=== PATIENT | female | born 1965 | race Hispanic/Latino ===

== ENCOUNTER 2016-10-28 16:36 | Emergency (ER) | payer MEDICARE ==
[2016-10-28 17:36] VITALS: BP 165/94; PULSE 97; RESP 19; TEMP 98.9; O2SAT 100; BMI 24.0
== END 2016-10-28 18:12 | disposition left against medical advice (07) ==
LOC: ED 16:36
DX: Z02.89 Encounter for other administrative examinations (principal); R42 Dizziness and giddiness

== ENCOUNTER 2017-04-16 05:54 | Emergency (ER) | payer MEDICARE ==
[2017-04-16 05:54] VITALS: BMI 24.0
[2017-04-16] MEDS ORDERED: Sodium Chloride 0.9% 1,000 ML IV STA (06:20)
--- NOTE | 2017-04-16 06:20 | ED PDOC ---
Arrival/HPI - General Chief Complaint: Cough, Cold, Congestion Time Seen by Provider: 04/16/17 06:13 Historian: Patient - History of Present Illness Narrative History of Present Illness (Text): 04/16/17 06:17 Christa Villalpando is a 52 year old female, whose past medical history includes hypothyroidism, GERD, and anxiety, who presents to the Emergency department complaining of nausea and upper abdominal discomfort since yesterday. Patient also reports associated generalized malaise, occasional cough, and some vague left ear ache discomfort at times. Patient notes a fever at home yesterday, for which she took Tylenol with relief. Patient denies any chest pain, shortness of breath, vomiting, diarrhea, urinary symptoms, neck pain, headache, dizziness, or any other complaints. Time/Duration: Other (Yesterday) Symptom Onset: Gradual Symptom Course: Unchanged Activities at Onset: Light Context: Home Past Medical History - Provider Review Nursing Documentation Reviewed: Yes - Infectious Disease Hx of Infectious Diseases: None - Tetanus Immunization Tetanus Immunization: Unknown - Cardiac Hx Cardiac Disorders: No Hx Hypertension: No - Pulmonary Hx Tuberculosis: No - Neurological HX Cerebrovascular Accident: No Hx Seizures: No - HEENT Hx HEENT Disorder: No - Renal Hx Renal Disorder: No - Endocrine/Metabolic Hx Endocrine Disorders: Yes Hx Hypothyroidism: Yes - Hematological/Oncological Hx Cancer: No - Integumentary Hx Dermatological Disorder: No - Musculoskeletal/Rheumatological Hx Musculoskeletal Disorders: No - Gastrointestinal Hx Gastrointestinal Disorders: Yes Hx Gastroesophageal Reflux: Yes - Genitourinary/Gynecological Hx Sexually Transmitted Diseases: No - Psychiatric Hx Psychophysiologic Disorder: Yes Hx Anxiety: Yes Hx Depression: Yes Hx Emotional Abuse: No Hx Physical Abuse: No Hx Substance Use: No - Anesthesia Hx Anesthesia Reactions: Yes Hx Malignant Hyperthermia: No - Suicidal Assessment Feels Threatened In Home Enviroment: No Family/Social History - Physician Review Nursing Documentation Reviewed: Yes Family/Social History: Unknown Family HX Smoking Status: Never Smoked Hx Alcohol Use: No Hx Substance Use: No Hx Substance Use Treatment: No Allergies/Home Meds Allergies/Adverse Reactions: Allergies No Known Allergies Allergy (Verified 10/28/16 17:37) Home Medications: Home Meds Medication Instructions Recorded Confirmed Levothyroxine [Synthroid] 100 mcg PO DAILY 12/13/15 04/16/17 Lurasidone HCl [Latuda] 20 mg PO DAILY 10/28/16 04/16/17 Primidone [Mysoline] 50 mg PO HS 04/16/17 04/16/17 Review of Systems - Physician Review All systems were reviewed & negative as marked: Yes - Review of Systems Constitutional: Fevers Eyes: Normal ENT: Normal Respiratory: Cough Cardiovascular: Normal. absent: Chest Pain Gastrointestinal: Abdominal Pain, Nausea. absent: Diarrhea, Vomiting Genitourinary Female: Normal. absent: Dysuria, Frequency, Hematuria, Urine Output Changes Musculoskeletal: Normal. absent: Back Pain, Neck Pain Skin: Normal. absent: Rash Neurological: Normal. absent: Headache, Dizziness Endocrine: Normal Hemo/Lymphatic: Normal Psychiatric: Normal Physical Exam Vital Signs Reviewed: Yes Vital Signs Temp Pulse Resp BP Pulse Ox 04/16/17 06:06 97.9 F 72 16 130/85 100 Temperature: Afebrile Blood Pressure: Normal Pulse: Regular Respiratory Rate: Normal Appearance: Positive for: Well-Appearing, Non-Toxic, Comfortable Pain Distress: None Mental Status: Positive for: Alert and Oriented X 3 - Systems Exam Head: Present: Atraumatic, Normocephalic Pupils: Present: PERRL Extroacular Muscles: Present: EOMI Conjunctiva: Present: Normal Ears: Present: Normal, NORMAL TM, Normal Canal. No: Erythema Mouth: Present: Moist Mucous Membranes Pharnyx: Present: Normal. No: ERYTHEMA, EXUDATE, TONSILS ENLARGED, Peritonsilar Swelling, Uvular Deviation, Muffled/Hoarse Voice, Strider Nose (External): Present: Atraumatic Nose (Internal): Present: Normal Inspection Neck: Present: Normal Range of Motion. No: Meningeal Signs, MIDLINE TENDERNESS , Paraspinal Tenderness Respiratory/Chest: Present: Clear to Auscultation, Good Air Exchange. No: Respiratory Distress, Accessory Muscle Use Cardiovascular: Present: Regular Rate and Rhythm, Normal S1, S2. No: Murmurs Abdomen: Present: Tenderness (Epigastric tenderness), Normal Bowel Sounds. No: Distention, Peritoneal Signs Back: Present: Normal Inspection. No: CVA Tenderness, Midline Tenderness, Paraspinal Tenderness Upper Extremity: Present: Normal Inspection. No: Cyanosis, Edema Lower Extremity: Present: Normal Inspection. No: Edema Neurological: Present: GCS=15, CN II-XII Intact, Speech Normal Skin: Present: Warm, Dry, Rashes (Eczematous rash to face), Normal Color Psychiatric: Present: Alert, Oriented x 3, Normal Insight, Normal Concentration Medical Decision Making ED Course and Treatment: 04/16/17 06:17 Impression: 52 year old female complaining of nausea, upper abdominal pain, occasional cough , left ear ache discomfort, and fever. Plan: -- US Gallbladder and Pancreas -- Labs, lipase -- Rapid influenza -- IV fluids -- Zofran -- Pepcid -- Reassess and disposition Progress Notes: 04/16/17 07:[address] Marley, pending labs, US, re-assessment, and final disposition. - RAD Interpretation Radiology Orders: 04/16/17 06:20 GALLBLADDER & PANCREAS [US] Stat - Medication Orders Current Medication Orders: Sodium Chloride (Sodium Chloride 0.9%) 1,000 mls @ 999 mls/hr IV .Q1H1M STA Stop: 04/16/17 07:20 Last Admin: 04/16/17 06:48 Dose: 999 mls/hr eMAR Start Stop Document 04/16/17 06:48 SS (Rec: 04/16/17 06:48 SS [id number]) Intravenous Solution Start Date 04/16/17 Start Time 06:48 End Date 04/16/17 End time 07:48 Total Infusion Time 60 Discontinued Medications Famotidine (Pepcid) 20 mg IVP STAT STA Stop: 04/16/17 06:21 Last Admin: 04/16/17 06:48 Dose: 20 mg IVP Administration Document 04/16/17 06:48 SS (Rec: 04/16/17 06:48 SS [id number]) Charges for Administration # of IVP Administrations 1 Ondansetron HCl (Zofran Inj) 4 mg IVP ONCE ONE Stop: 04/16/17 06:21 Last Admin: 04/16/17 06:48 Dose: 4 mg IVP Administration Document 04/16/17 06:48 SS (Rec: 04/16/17 06:48 SS [id number]) Charges for Administration # of IVP Administrations 1 - Scribe Statement The provider has reviewed the documentation as recorded by the Scribe Provider Attestation: Paige Jorge All medical record entries made by the Scribe were at my direction and personally dictated by me. I have reviewed the chart and agree that the record accurately reflects my personal performance of the history, physical exam, medical decision making, and the department course for this patient. I have also personally directed, reviewed, and agree with the discharge instructions and disposition. Disposition/Present on Arrival - Present on Arrival Any Indicators Present on Arrival: No History of DVT/PE: No History of Uncontrolled Diabetes: No Urinary Catheter: No History of Decub. Ulcer: No History Surgical Site Infection Following: None - Disposition Have Diagnosis and Disposition been Completed?: No Diagnosis: Abdominal pain, Nausea Disposition Time: 07:00 Condition: STABLE Forms: [employer] (Montenegrin)
[2017-04-16 06:56] LABS: HEMOGLOBIN 12.7 g/dL (12.0-16.0); MEAN CORPUSCULAR HEMOGLOBIN 28.6 pg (25.0-35.0); MEAN CORPUSCULAR HGB CONC 32.2 g/dl (31.0-37.0); MEAN PLATELET VOLUME 9.8 fl (7.0-11.0); RBC 4.44 10^6/uL (3.5-6.1); RED CELL DISTRIBUTION WIDTH 13.4 % (11.5-14.5); WHITE BLOOD COUNT 6.6 10^3/ul (4.5-11.0)
[2017-04-16 07:07] LABS: ALB/GLOB RATIO 1.1 (1.1-1.8); ALBUMIN 4.1 g/dL (3.0-4.8); ALT/SGPT 22 U/L (7-56); AST/SGOT 25 U/L (14-36); BLOOD UREA NITROGEN 10 mg/dL (7-21); CALCIUM 9.7 mg/dL (8.4-10.5); GFR AFRICAN-AMERICAN > 60; GFR NON-AFRICAN AMERICAN > 60; LIPASE 64 U/L (23-300)
--- NOTE | 2017-04-16 07:18 | ED PDOC ---
Physical Exam Vital Signs Temp Pulse Resp BP Pulse Ox 04/16/17 06:06 97.9 F 72 16 130/85 100 Medical Decision Making ED Course and Treatment: 04/16/17 07:00 Case signed out to me by Dr. Hernandez. Patient is a 52 year old female, whose past medical history includes hypothyroidism, GERD, and anxiety. Patient came in complaining of nausea and upper abdominal discomfort. Currently ultrasound is pending. 04/16/17 09:30 Abdominal Ultrasound: Creator : Norm Singer MD FINDINGS: LIVER: Measures 17.9 cm in length. Normal echogenicity of the liver parenchyma. No mass. No intrahepatic bile duct dilatation. GALLBLADDER: Unremarkable. No gallstones. COMMON BILE DUCT: Measures 5.5 mm. No stones. No dilatation. PANCREAS: Unremarkable as visualized. No mass. No ductal dilatation. RIGHT KIDNEY: Measures 10.5 cm in length. Normal echogenicity. No calculus, mass , or hydronephrosis. AORTA: No aneurysmal dilatation. IVC: Unremarkable. OTHER FINDINGS: None . IMPRESSION: Unremarkable ultrasonography limited to the right upper quadrant abdomen. - Lab Interpretations Lab Results: 04/16/17 06:45 04/16/17 06:45 Lab Results 04/16/17 06:45: WBC 6.6, RBC 4.44, Hgb 12.7, Hct 39.5, MCV 89.0, MCH 28.6, MCHC 32.2, RDW 13.4, Plt Count 369, MPV 9.8 04/16/17 06:45: Sodium 145, Potassium 4.0, Chloride 108 H, Carbon Dioxide 24, Anion Gap 17, BUN 10, Creatinine 0.7, Est GFR ( Amer) > 60, Est GFR (Non- Af Amer) > 60, Random Glucose 97, Calcium 9.7, Total Bilirubin 0.4, AST 25, ALT 22, Alkaline Phosphatase 73, Total Protein 7.7, Albumin 4.1, Globulin 3.6, Albumin/Globulin Ratio 1.1, Lipase 64 04/16/17 06:45: Influenza Typ A,B (EIA) Pos for influenza a H - RAD Interpretation Radiology Orders: 04/16/17 06:20 GALLBLADDER & PANCREAS [US] Stat [employer] Reactor Operator Head: Radiologist - Medication Orders Current Medication Orders: Oseltamivir Phosphate (Tamiflu Cap) 75 mg PO BID JUANITO PRN Reason: Protocol Stop: 04/21/17 07:52 Last Admin: 04/16/17 08:31 Dose: 75 mg Discontinued Medications Acetaminophen (Tylenol 325mg Tab) 975 mg PO STAT STA Stop: 04/16/17 09:18 Last Admin: 04/16/17 08:29 Dose: 975 mg Famotidine (Pepcid) 20 mg IVP STAT STA Stop: 04/16/17 06:21 Last Admin: 04/16/17 06:48 Dose: 20 mg IVP Administration Document 04/16/17 06:48 SS (Rec: 04/16/17 06:48 SS [id number]) Charges for Administration # of IVP Administrations 1 Sodium Chloride (Sodium Chloride 0.9%) 1,000 mls @ 999 mls/hr IV .Q1H1M STA Stop: 04/16/17 07:20 Last Admin: 04/16/17 06:48 Dose: 999 mls/hr eMAR Start Stop Document 04/16/17 06:48 SS (Rec: 04/16/17 06:48 SS [id number]) Intravenous Solution Start Date 04/16/17 Start Time 06:48 End Date 04/16/17 End time 07:48 Total Infusion Time 60 Ondansetron HCl (Zofran Inj) 4 mg IVP ONCE ONE Stop: 04/16/17 06:21 Last Admin: 04/16/17 06:48 Dose: 4 mg IVP Administration Document 04/16/17 06:48 SS (Rec: 04/16/17 06:48 SS [id number]) Charges for Administration # of IVP Administrations 1 - PA / ASSISTANCE COORDINATOR / Resident Statement MD/DO has reviewed & agrees with the documentation as recorded. - Scribe Statement The provider has reviewed the documentation as recorded by the Patricia Haney Provider Scribe Attestation: All medical record entries made by the Patricia were at my direction and personally dictated by me. I have reviewed the chart and agree that the record accurately reflects my personal performance of the history, physical exam, medical decision making, and the department course for this patient. I have also personally directed, reviewed, and agree with the discharge instructions and disposition. Disposition/Present on Arrival - Present on Arrival Any Indicators Present on Arrival: No History of DVT/PE: No History of Uncontrolled Diabetes: No Urinary Catheter: No History of Decub. Ulcer: No History Surgical Site Infection Following: None - Disposition Have Diagnosis and Disposition been Completed?: Yes Diagnosis: Abdominal pain, Nausea, Influenza A Disposition: HOME/ ROUTINE Disposition Time: 10:00 Patient Plan: Discharge Patient Problems: Current Active Problems Problem Status Onset Abdominal pain Acute Nausea Acute Condition: STABLE Discharge Instructions (ExitCare): Flu, Flu, Adult (DC) Additional Instructions: Dorinda Unger to be the one to tell you that you have INFLUENZA A. Tamiflu will lessen the symptoms and shorten the time you are ill but it is not a cure for the flu. Stay away from others as much as possible so as not to spread the flu. Return to us if worse, See your doctor next week. Zofran is for Nausea. Min- Dr. Hayes Marley Prescriptions: Oseltamivir [Tamiflu] 75 mg PO BID #10 cap Forms: [employer] (Indonesian)
--- NOTE | 2017-04-16 09:30 | US ---
HISTORY: upper abdominal discomfort COMPARISON: None. TECHNIQUE: Sonographic evaluation of the right upper quadrant of the abdomen. FINDINGS: LIVER: Measures 17.9 cm in length. Normal echogenicity of the liver parenchyma. No mass. No intrahepatic bile duct dilatation. GALLBLADDER: Unremarkable. No gallstones. COMMON BILE DUCT: Measures 5.5 mm. No stones. No dilatation. PANCREAS: Unremarkable as visualized. No mass. No ductal dilatation. RIGHT KIDNEY: Measures 10.5 cm in length. Normal echogenicity. No calculus, mass, or hydronephrosis. AORTA: No aneurysmal dilatation. IVC: Unremarkable. OTHER FINDINGS: None . IMPRESSION: Unremarkable ultrasonography limited to the right upper quadrant abdomen.
[2017-04-16 15:13] VITALS: BP 128/64; PULSE 88; RESP 17; TEMP 97; O2SAT 97
== END 2017-04-16 12:04 | disposition home or self-care (01) ==
LOC: ED 05:54
DX: R11.0 Nausea (principal); R10.9 Unspecified abdominal pain; K21.9 Gastro-esophageal reflux disease without esophagitis
CPT/HCPCS: 76705; 80053; 83690; 85027; 87804; 96361; 96374; 96375; 99284; J2405; J7040

== ENCOUNTER 2017-06-16 02:56 | Emergency (ER) | payer MEDICARE ==
[2017-06-16 02:58] VITALS: BMI 24.0
[2017-06-16 03:27] VITALS: BP 114/74; PULSE 88; RESP 18; TEMP 97.4; O2SAT 96
--- NOTE | 2017-06-16 03:52 | ED PDOC ---
Arrival/HPI - General Chief Complaint: Anxiety Time Seen by Provider: 06/16/17 03:19 Historian: Patient - History of Present Illness Narrative History of Present Illness (Text): 06/16/17 03:52 A 52 year old female, whose past medical history includes anxiety, presents to the emergency department for evaluation of depression. Patient recently lost her due to overdose. Patient reports she feels overwhelmed, caring for her disabled son. Patient states she can't sleep. Patient is crying while being interviewed. Patient states she is under psychiatric care, but has no medication until seeing her psychiatrist this week.Wants a dose of meds to help her relax. Denies any somatic complaints. Patient denies any suicidal ideation, homicidal ideation or any other complaints at this time. Psychiatrist: Dr. Cohn Symptom Onset: Sudden Symptom Course: Unchanged Activities at Onset: Rest Context: Home Past Medical History - Provider Review Nursing Documentation Reviewed: Yes - Infectious Disease Hx of Infectious Diseases: None - Tetanus Immunization Tetanus Immunization: Unknown - Reproductive Menopause: Yes - Cardiac Hx Cardiac Disorders: No Hx Hypertension: No - Pulmonary Hx Tuberculosis: No - Neurological HX Cerebrovascular Accident: No Hx Seizures: No - HEENT Hx HEENT Disorder: No - Renal Hx Renal Disorder: No - Endocrine/Metabolic Hx Endocrine Disorders: Yes Hx Hypothyroidism: Yes - Hematological/Oncological Hx Cancer: No - Integumentary Hx Dermatological Disorder: No - Musculoskeletal/Rheumatological Hx Musculoskeletal Disorders: No - Gastrointestinal Hx Gastrointestinal Disorders: Yes Hx Gastroesophageal Reflux: Yes - Genitourinary/Gynecological Hx Sexually Transmitted Diseases: No - Psychiatric Hx Psychophysiologic Disorder: Yes Hx Anxiety: Yes Hx Depression: Yes Hx Emotional Abuse: No Hx Physical Abuse: No Hx Substance Use: No - Anesthesia Hx Anesthesia Reactions: Yes Hx Malignant Hyperthermia: No - Suicidal Assessment Feels Threatened In Home Enviroment: No Family/Social History - Physician Review Nursing Documentation Reviewed: Yes Family/Social History: No Known Family HX Smoking Status: Never Smoked Hx Alcohol Use: No Hx Substance Use: No Hx Substance Use Treatment: No Allergies/Home Meds Allergies/Adverse Reactions: Allergies No Known Allergies Allergy (Verified 06/16/17 03:19) Home Medications: Home Meds Medication Instructions Recorded Confirmed Levothyroxine [Synthroid] 100 mcg PO DAILY 12/13/15 06/16/17 Primidone [Mysoline] 50 mg PO HS 06/16/17 06/16/17 Review of Systems - Physician Review All systems were reviewed & negative as marked: Yes - Review of Systems Constitutional: absent: Fevers Psychiatric: Depression. absent: Suicidal Ideation, Other (homicidal ideation) Physical Exam Vital Signs Reviewed: Yes Vital Signs Temp Pulse Resp BP Pulse Ox 06/16/17 03:23 97.4 F L 88 18 114/74 96 Temperature: Afebrile Blood Pressure: Normal Pulse: Regular Respiratory Rate: Normal Appearance: Positive for: Well-Appearing, Non-Toxic, Comfortable Pain Distress: None Mental Status: Positive for: Alert and Oriented X 3, other (crying) - Systems Exam Head: Present: Atraumatic, Normocephalic Pupils: Present: PERRL Extroacular Muscles: Present: EOMI Conjunctiva: Present: Normal Mouth: Present: Moist Mucous Membranes Neck: Present: Normal Range of Motion Respiratory/Chest: Present: Clear to Auscultation, Good Air Exchange. No: Respiratory Distress, Accessory Muscle Use Cardiovascular: Present: Regular Rate and Rhythm, Normal S1, S2. No: Murmurs Abdomen: No: Tenderness, Distention, Peritoneal Signs Back: Present: Normal Inspection Upper Extremity: Present: Normal Inspection. No: Cyanosis, Edema Lower Extremity: Present: Normal Inspection. No: Edema Neurological: Present: GCS=15, CN II-XII Intact, Speech Normal Skin: Present: Warm, Dry, Normal Color. No: Rashes Psychiatric: Present: Alert, Oriented x 3, Normal Concentration, Depressed Mood (crying) Medical Decision Making ED Course and Treatment: 06/16/17 03:50 Impression: A 52 year old female with depression. Plan: -- Reassess and disposition Progress Notes: PES will evaluate patient. 06/16/17 05:32 PES evaluated patient. Spoke with psychiatrist Dr. Wolfe, patient will be discharged and to follow up with her psychiatrist today. - Medication Orders Current Medication Orders: Discontinued Medications Clonazepam (Klonopin) 1 mg PO STAT STA PRN Reason: Protocol Stop: 06/16/17 04:36 Last Admin: 06/16/17 04:40 Dose: 1 mg - Scribe Statement The provider has reviewed the documentation as recorded by the Patricia Zuniga Provider Scribe Attestation: All medical record entries made by the Scribe were at my direction and personally dictated by me. I have reviewed the chart and agree that the record accurately reflects my personal performance of the history, physical exam, medical decision making, and the department course for this patient. I have also personally directed, reviewed, and agree with the discharge instructions and disposition. Disposition/Present on Arrival - Present on Arrival Any Indicators Present on Arrival: No History of DVT/PE: No History of Uncontrolled Diabetes: No Urinary Catheter: No History of Decub. Ulcer: No History Surgical Site Infection Following: None - Disposition Have Diagnosis and Disposition been Completed?: Yes Diagnosis: Bipolar disorder Disposition: HOME/ ROUTINE Disposition Time: 05:27 Patient Plan: Discharge Condition: GOOD Discharge Instructions (ExitCare): Bipolar Disorder (DC) Additional Instructions: Follow up with later today. Forms: [employer] ([place] Islander)
== END 2017-06-16 06:21 | disposition home or self-care (01) ==
LOC: ED 02:56
DX: F31.9 Bipolar disorder, unspecified (principal)

== ENCOUNTER 2018-04-30 08:26 | Emergency (ER) | payer MEDICARE ==
[2018-04-30 08:27] VITALS: BMI 24.0
[2018-04-30 09:10] VITALS: TEMP 98.2
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
[2018-04-30 11:00] VITALS: BP 142/90; PULSE 92; RESP 18; O2SAT 97
== END 2018-04-30 11:00 | disposition home or self-care (01) ==
LOC: ED 08:26
DX: S09.90XA Unspecified injury of head, initial encounter (principal); S00.11XA Contusion of right eyelid and periocular area, initial encounter; Y04.0XXA Assault by unarmed brawl or fight, initial encounter; E03.9 Hypothyroidism, unspecified

== ENCOUNTER 2018-07-19 16:57 | Emergency (ER) | payer MEDICARE ==
[2018-07-19 16:57] VITALS: BMI 24.0
[2018-07-19 17:07] VITALS: TEMP 98.1
[2018-07-19 17:15] VITALS: RESP 16
[2018-07-19] MEDS ORDERED: Sodium Chloride 0.9% 1,000 ML IV STA (17:22)
[2018-07-19 17:28] LABS: BASO # 0.01 K/mm3 (0.0-2.0); BASO % 0.1 % (0.0-3.0); EOS # 0.1 (0.0-0.7); HEMOGLOBIN 13.6 g/dL (12.0-16.0); LYMPH # 4.2 (1.2-3.4); LYMPH % 36.4 % (22.0-35.0); MEAN CELL VOLUME 87.8 fl (80.0-105.0); MEAN CORPUSCULAR HEMOGLOBIN 29.7 pg (25.0-35.0); MEAN CORPUSCULAR HGB CONC 33.8 g/dl (31.0-37.0); MEAN PLATELET VOLUME 9.8 fl (7.0-11.0); MONO # 1.1 (0.1-0.6); MONO % 9.4 % (1.0-6.0); RBC 4.58 10^6/uL (3.5-6.1); RED CELL DISTRIBUTION WIDTH 13.1 % (11.5-14.5); WHITE BLOOD COUNT 11.5 10^3/uL (4.5-11.0)
[2018-07-19 17:33] LABS: ALB/GLOB RATIO 1.2 (1.1-1.8); ALT/SGPT 14 U/L (7-56); AST/SGOT 26 U/L (14-36); BLOOD UREA NITROGEN 13 mg/dL (7-21); GFR NON-AFRICAN AMERICAN > 60
[2018-07-19 17:35] LABS: INR 1.12; PARTIAL THROMBOPLASTIN TIME 29.2 Seconds (26.9-38.3); PROTHROMBIN TIME 12.4 SECONDS (9.4-12.5)
[2018-07-19 17:43] LABS: TROPONIN I < 0.01 ng/mL
[2018-07-19] MEDS ORDERED: Albuterol 0.083% Inhal Sol (2.5 mg/3 mL) UD INH STA ×2 (17:52→18:45)
--- NOTE | 2018-07-19 18:08 | ED PDOC ---
Arrival/HPI - General Chief Complaint: Allergic Reaction Time Seen by Provider: 07/19/18 17:01 Historian: Patient - History of Present Illness Narrative History of Present Illness (Text): 53 y/o female with PMH of tremors, hypothyroidism, anxiety, panic attacks, presents to the ED c/o throat irritation, skin redness, and SOB x 1 day. Pt believes she may have eaten something at a [employer] restaurant that caused her to have an allergic reaction. States she feels as if her tongue is swollen. Pt states her SOB is similar to prior panic attacks. Does not have any anxiety medication. Receiving a refill tomorrow at her psychiatrist appointment. Pt took 2 benadryls prior to arrival. Denies fever, chills, cough, chest pain, abdominal pain, nausea, vomiting, palpitations, lip swelling, wheezing, back pain, neck pain, or any other associated symptoms. Past Medical History - Provider Review Nursing Documentation Reviewed: Yes - Infectious Disease Hx of Infectious Diseases: None - Tetanus Immunization Tetanus Immunization: Unknown - Cardiac Hx Cardiac Disorders: No Hx Hypertension: No - Pulmonary Hx Tuberculosis: No - Neurological HX Cerebrovascular Accident: No Hx Seizures: No - HEENT Hx HEENT Disorder: No - Renal Hx Renal Disorder: No - Endocrine/Metabolic Hx Endocrine Disorders: Yes Hx Hypothyroidism: Yes - Hematological/Oncological Hx Cancer: No - Integumentary Hx Dermatological Disorder: No - Musculoskeletal/Rheumatological Hx Musculoskeletal Disorders: No - Gastrointestinal Hx Gastrointestinal Disorders: Yes Hx Gastroesophageal Reflux: Yes - Genitourinary/Gynecological Hx Sexually Transmitted Diseases: No - Psychiatric Hx Psychophysiologic Disorder: Yes Hx Anxiety: Yes Hx Depression: Yes Hx Emotional Abuse: No Hx Physical Abuse: No Hx Substance Use: No - Anesthesia Hx Anesthesia: Yes Hx Anesthesia Reactions: Yes Hx Malignant Hyperthermia: No - Suicidal Assessment Feels Threatened In Home Enviroment: No Family/Social History - Physician Review Nursing Documentation Reviewed: Yes Family/Social History: No Known Family HX Smoking Status: Never Smoked Hx Alcohol Use: No Hx Substance Use: No Hx Substance Use Treatment: No Allergies/Home Meds Allergies/Adverse Reactions: Allergies No Known Allergies Allergy (Verified 06/16/17 03:19) Home Medications: Home Meds Medication Instructions Recorded Confirmed Levothyroxine [Synthroid] 100 mcg PO DAILY 12/13/15 06/16/17 Primidone [Mysoline] 50 mg PO HS 06/16/17 06/16/17 Review of Systems - Review of Systems Constitutional: Normal. absent: Fevers Eyes: Normal. absent: Vision Changes, Photophobia ENT: Normal. absent: Sore Throat, Rhinorrhea, Sinus Congestion Respiratory: SOB Cardiovascular: Normal. absent: Chest Pain, Palpitations, Syncope Gastrointestinal: Normal. absent: Abdominal Pain, Nausea, Vomiting Genitourinary Female: Frequency Musculoskeletal: Normal. absent: Back Pain, Neck Pain Skin: Other (erythema) Neurological: Normal. absent: Headache, Dizziness, Focal Weakness, Seizure Endocrine: Diaphoresis (chronic) Physical Exam Vital Signs Reviewed: Yes Vital Signs Temp Pulse Resp BP Pulse Ox 07/19/18 17:13 94 H 16 146/87 100 07/19/18 17:06 98.1 F 101 H 18 125/76 97 Temperature: Afebrile Blood Pressure: Normal Pulse: Tachycardic Respiratory Rate: Normal Appearance: Positive for: Well-Appearing, Non-Toxic, Comfortable Pain Distress: None Mental Status: Positive for: Alert and Oriented X 3 - Systems Exam Head: Present: Atraumatic, Normocephalic Pupils: Present: PERRL Extroacular Muscles: Present: EOMI Conjunctiva: Present: Normal Mouth: Present: Moist Mucous Membranes, Normal Lips (no swelling), Normal Tounge (no swelling). No: Drooling, Trismus Pharnyx: Present: Normal. No: ERYTHEMA, EXUDATE, TONSILS ENLARGED, Peritonsilar Swelling, Uvular Deviation, Muffled/Hoarse Voice, Strider, Soft Palate/Uvular Edema, Other (No drooling; No tripoding ) Neck: Present: Normal Range of Motion. No: Meningeal Signs Respiratory/Chest: Present: Clear to Auscultation, Good Air Exchange. No: Re spiratory Distress, Accessory Muscle Use, Wheezes, Decreased Breath Sounds Cardiovascular: Present: Regular Rate and Rhythm, Normal S1, S2, Peripheal Pulses Present Abdomen: No: Tenderness Upper Extremity: Present: Normal Inspection, Normal ROM, NORMAL PULSES, Neurovascularly Intact, Capillary Refill < 2s. No: Cyanosis, Edema, Temperature Abnormalties Lower Extremity: Present: Normal Inspection, NORMAL PULSES, Normal ROM, Neurovascularly Intact, Capillary Refill < 2 s. No: Edema, CALF TENDERNESS, Temperature Abnormalties Neurological: Present: GCS=15, Other (chronic tremors) Skin: Present: Warm, Dry, Erythematous (face and chest). No: Rashes Psychiatric: Present: Alert, Oriented x 3, Anxious Medical Decision Making ED Course and Treatment: Initial Plan: * Labs * CXR * EKG * IVF, Albuterol, Solumedrol Patient examined at bedside by ED attending Dr. Randolph who recommends treatment with Albuterol and Solumedrol 18:02 Bloodwork reviewed, mild leukocytosis without left shift. Otherwise unremarkable. Urine shows large leuk esterase, pt admits to intermittent dysuria. Will treat with keflex. CXR read as negative for infiltrate or pneumothorax by me EKG shows no signs of ischemia, troponin negative On re-evaluation, pt states she is feeling much better. Admits to resolution of shortness of breath and throat irritation. Pt requesting discharge home. Case and diagnostic testing reviewed with Dr. Randolph who recommends discharge home. Advised PMD followup Diagnostic testing results and plan of care discussed with patient. Strict instructions given regarding prescription use, importance of followup, and signs/symptoms to return to ER including worsening SOB, lip/tongue/mouth/throat swelling or any other new/worsening symptoms. Pt verbalized understanding of discussion. Patient is A&Ox3, ambulating with steady gait, with vital signs stable for discharge. - Lab Interpretations Lab Results: PT 12.4 SECONDS (9.4-12.5) 07/19/18 17:10 INR 1.12 07/19/18 17:10 APTT 29.2 Seconds (26.9-38.3) 07/19/18 17:10 Troponin I < 0.01 ng/mL 07/19/18 17:10 Total Bilirubin 0.5 mg/dL (0.2-1.3) 07/19/18 17:10 AST 26 U/L (14-36) 07/19/18 17:10 ALT 14 U/L (7-56) 07/19/18 17:10 Alkaline Phosphatase 78 U/L (38-126) 07/19/18 17:10 Total Protein 9.3 g/dL (5.8-8.3) H 07/19/18 17:10 Albumin 5.0 g/dL (3.0-4.8) H 07/19/18 17:10 Globulin 4.3 gm/dL 07/19/18 17:10 Albumin/Globulin Ratio 1.2 (1.1-1.8) 07/19/18 17:10 07/19/18 17:10 07/19/18 17:10 Lab Results 07/19/18 18:06: Urine Color yellow, Urine Appearance Clear, Urine pH 6.0, Ur Specific [place] 1.015, Urine Protein Negative, Urine Glucose (UA) Negative, Urine Ketones Negative, Urine Blood Negative, Urine Nitrate Negative, Urine Bilirubin Negative, Urine Urobilinogen 0.2, Ur Leukocyte Esterase Large H, Urine RBC TEST NOT PERFORMED, Urine WBC 5 - 10 H, Ur Epithelial Cells 10 - 12 H, Amorphous Sediment Small, Urine Bacteria Small 07/19/18 17:10: Sodium 144, Potassium 3.6, Chloride 106, Carbon Dioxide 23, Anion Gap 19, BUN 13, Creatinine 0.7, Est GFR ( Amer) > 60, Est GFR (Non- Af Amer) > 60, Random Glucose 118 H, Calcium 10.0, Total Bilirubin 0.5, AST 26, ALT 14, Alkaline Phosphatase 78, Troponin I < 0.01, Total Protein 9.3 H, Albumin 5.0 H, Globulin 4.3, Albumin/Globulin Ratio 1.2 07/19/18 17:10: PT 12.4, INR 1.12, APTT 29.2 07/19/18 17:10: WBC 11.5 H, RBC 4.58, Hgb 13.6, Hct 40.2, MCV 87.8, MCH 29.7, MCHC 33.8, RDW 13.1, Plt Count 436, MPV 9.8, Neut % (Auto) 53.1, Lymph % (Auto) 36.4 H, [place] % (Auto) 9.4 H, Eos % (Auto) 1.0 L, Baso % (Auto) 0.1, Lymph # (Auto) 4.2 H, [place] # (Auto) 1.1 H, Eos # (Auto) 0.1, Baso # (Auto) 0.01, Absolute Neuts (auto) 6.13 - RAD Interpretation Radiology Orders: 07/19/18 17:14 CHEST PORTABLE [RAD] Stat - Medication Orders Current Medication Orders: Sodium Chloride (Sodium Chloride 0.9%) 1,000 mls @ 999 mls/hr IV .Q1H1M STA Stop: 07/19/18 18:22 Last Admin: 07/19/18 17:40 Dose: 999 mls/hr eMAR Start Stop Document 07/19/18 17:40 MA (Rec: 07/19/18 17:42 MA [id number]) Intravenous Solution Start Date 07/19/18 Start Time 17:42 Discontinued Medications Albuterol Sulfate (Albuterol 0.083% Inhal Martha (2.5 Mg/3 Ml) Ud) 2.5 mg INH STAT STA Stop: 07/19/18 17:53 Methylprednisolone (Solu-Medrol) 125 mg IVP STAT STA Stop: 07/19/18 17:13 Last Admin: 07/19/18 17:24 Dose: 125 mg IVP Administration Document 07/19/18 17:24 MA (Rec: 07/19/18 17:24 MA [id number]) Charges for Administration # of IVP Administrations 1 Disposition/Present on Arrival - Present on Arrival Any Indicators Present on Arrival: No History of DVT/PE: No History of Uncontrolled Diabetes: No Urinary Catheter: No History of Decub. Ulcer: No History Surgical Site Infection Following: None - Disposition Have Diagnosis and Disposition been Completed?: Yes Diagnosis: Allergic reaction, UTI (urinary tract infection), Anxiety Disposition: HOME/ ROUTINE Disposition Time: 20:05 Condition: IMPROVED Discharge Instructions (ExitCare): Urinary Tract Infections in Adults, Allergy Skin Testing Additional Instructions: Prednisone 2 tabs daily for 4 days, take with food Benadryl every 6 hours as needed Followup with primary doctor within 2 days Followup with psychiatrist tomorrow as scheduled Return to ER with any new/worsening symptoms Prescriptions: Cephalexin [Keflex] 500 mg PO BID 7 Days #14 capsule predniSONE [predniSONE Tab] 40 mg PO DAILY #8 tab Referrals: Tereso Hui MD [Primary Care Provider] - Follow up with primary Forms: [employer] (Azerbaijani), WORK NOTE
[2018-07-19 18:51] VITALS: O2SAT 99
[2018-07-19 18:59] LABS: URINE BILIRUBIN NEGATIVE (NEGATIVE); URINE BLOOD NEGATIVE (NEGATIVE); URINE GLUCOSE (UA) NEGATIVE (NEGATIVE); URINE LEUKOCYTE ESTERASE LARGE Leu/uL (NEGATIVE); URINE PROTEIN NEGATIVE mg/dL (<30 mg/dL); URINE UROBILINOGEN 0.2 E.U./dL (<1 E.U./dL)
[2018-07-19 19:10] LABS: URINE APPEARANCE CLEAR (CLEAR)
[2018-07-19 19:23] LABS: URINE AMORPHOUS SEDIMENT SMALL /hpf; URINE BACTERIA SMALL /hpf
[2018-07-19 20:07] VITALS: BP 130/86; PULSE 90
--- NOTE | 2018-07-20 09:45 | RAD ---
Date of service: 07/19/2018 HISTORY: sob COMPARISON: Portable chest 12/13/2015. TECHNIQUE: 1 view obtained. FINDINGS: LUNGS: No active pulmonary disease. PLEURA: No significant pleural effusion identified, no pneumothorax apparent. CARDIOVASCULAR: No aortic atherosclerotic calcification present. Normal cardiac size. No pulmonary vascular congestion. OSSEOUS STRUCTURES: No significant abnormalities. VISUALIZED UPPER ABDOMEN: Normal. OTHER FINDINGS: None. IMPRESSION: No interval acute cardiopulmonary disease appreciated.
--- NOTE | 2018-07-20 10:59 | CARD ---
APPROVED REPORT Date of service: 07/19/2018 EKG Measurement Heart [id number] <Conclusion> Normal sinus rhythm Nonspecific ST abnormality Abnormal ECG
== END 2018-07-19 20:05 | disposition home or self-care (01) ==
LOC: ED 16:57
DX: T78.40XA Allergy, unspecified, initial encounter (principal); X58.XXXA Exposure to other specified factors, initial encounter; F41.9 Anxiety disorder, unspecified; N39.0 Urinary tract infection, site not specified; E03.9 Hypothyroidism, unspecified
CPT/HCPCS: 71045; 80053; 81001; 84484; 85025; 85610; 85730; 87086; 93005; 94640; 96374; 99284; J2930; J7030